=== PATIENT | female | born 1970 | race African-American/Black ===

== ENCOUNTER 2016-11-07 07:45 | Day surgery (SDC) | payer OTHER ==
[~2016-11-07] VITALS: Ht 170.2 cm; Wt 88.6 kg
[2016-11-07 08:25] VITALS: Ht 170.2 cm; Wt 88.6 kg
[2016-11-07] MEDS ORDERED: CETI10CA PO (08:25)
[2016-11-07] MEDS ORDERED: ATEN50TA PO (08:25)
[2016-11-07] MEDS ORDERED: AMLO-147 PO (08:25)
[2016-11-07] MEDS ORDERED: NAPR-688 PO (08:25)
[2016-11-07 08:33] VITALS: BP 150/80; PULSE 88; RESP 18
[2016-11-07] MEDS ORDERED: LIDOCAINE 4% SOLUTION 50 ML BTL ONE (08:35)
[2016-11-07] MEDS ORDERED: MIDAZOLAM 1 MG/ML 2 ML INJ ONE ×2 (09:29)
[2016-11-07] MEDS ORDERED: FENTAnyl 50 MCG/ML VIAL ONE (09:29)
[2016-11-07 09:35] VITALS: BP 127/87; PULSE 76; RESP 18
--- NOTE | 2016-11-07 10:47 | GILP ---
DATE OF PROCEDURE: 11/07/2016 PROCEDURE: Esophagogastroduodenoscopy. PREOPERATIVE DIAGNOSIS: The patient presenting with history of chronic indigestion, dyspepsia, abdo ally bloating. She is on Naprosyn, rule out drug-induced ulcer disease, rule out esophagitis. POSTOPERATIVE DIAGNOSES: 1. Grade II Muhlenberg classification for reflux esophagitis. Biopsies were done. 2. Multiple antral erosions. Biopsy was done to rule out Helicobacter pylori infection. DESCRIPTION OF PROCEDURE: After the informed written consent was obtained, the patient was asked to lie on the left lateral side. A total of 4 mg Versed and 50 mcg of fentanyl was given as intraveno us anesthesia. When the patient became somnolent, the Olympus video upper endoscope was introduced into the orophar ynx, then into the esophagus. Esophagus showed evidence of several erosions above the GE junction i ndicating grade II reflux esophagitis, Muhlenberg classification. Biopsies were obtained to rule o ut Davila's esophagus. Scope at this time was advanced into the stomach. Multiple erosions were n oted in the antrum with erythema in a patchy distribution. The fundus of the stomach appeared nasima l, lesser curvature appeared normal. Biopsy was obtained from the lesser curvature, antrum and the fundus to rule out H. pylori infection. Duodenum was examined. The mucosa appeared normal up to th e end of the second portion. Endoscope at this time was withdrawn and no additional abnormalities d etected and the procedure was terminated. PLAN: Recommend to stop the Naprosyn and recommend Dexilant 60 mg once a day for 2 months. Dictated By: CHEYENNE BANKS/NTS Conf#: [id number] DID#: [id number] CC: CHEYENNE ZHANG MD; ALEC QUEVEDO;*EndCC*
--- NOTE | 2016-11-07 14:33 | GILP ---
DATE OF PROCEDURE: PROCEDURE: Colonoscopy. PREOPERATIVE DIAGNOSIS: Patient presenting with history of colon polyps in the family members, moth er had colon polyps. Procedure performed to rule out colon polyps. POSTOPERATIVE DIAGNOSES: External hemorrhoids. No polyps or carcinoma noted. DESCRIPTION OF PROCEDURE: After informed written consent was obtained, the patient was asked to lie on the left lateral side, 4 mg Versed and 100 mcg of fentanyl was given as intravenous anesthesia. When the patient became somnolent, the Olympus video colonoscope was introduced into the rectum and scope was advanced all the way to the cecum. Entire colon appeared perfectly normal with no mucosal abnormality. No polyps noted. No additional abnormalities detected. On the way out, retroflexion was performed. Minimal internal hemorrhoids were noted. When the scope was withdrawn, minimal ext ernal hemorrhoids were noted and the procedure was terminated. PLAN: Recommend repeat colonoscopy in 5 years. Dictated By: CHEYENNE BANKS/ASAD Conf#: [id number] DID#: [id number]
== END 2016-11-07 11:06 | disposition home or self-care (01) ==
LOC: GIL 07:45
PROVIDERS: ATTEND Internal Medicine Gastroenterology
DX: K21.0 Gastro-esophageal reflux disease with esophagitis (principal); K64.4 Residual hemorrhoidal skin tags; I10 Essential (primary) hypertension
CPT/HCPCS: 43239; 45378; 84703; 88305; 88312; 88313; J2250; J3010; Z7610